=== PATIENT | male | born 1975 | race Caucasian/White ===

== ENCOUNTER 2016-08-20 09:02 | Emergency (ER) | payer BC ==
--- NOTE | 2016-08-20 09:14 | Emergency Department Record ---
History of Present Illness - General Chief complaint: Extremity Problem Stated complaint: RIGHT ELBOW INJURY Time Seen by Provider: 08/20/16 09:09 Source: Patient Mode of Arrival: Ambulatory Limitations: No limitations - History of Present Illness Initial comments: 40 yo male presents to ED with a CC of right elbow pain following a slip-and- fall while sledding yesterday. Patient reports painful ROM, denies numbness, tingling, or boot liner maker strength weakness symptoms. Patient denies other injury, and the patient denies health problems at his baseline. MD Complaint: Joint pain Onset/Timin -: Days(s) Location: Right, Elbow History of Same: No -: Yes Arthralgia Consistency: Constant Improves with: Nothing Worsens with: Other (flexion/movement) Associated Symptoms: Denies other symptoms - Related Data Home Medications Medication Instructions Recorded Confirmed Last Taken No Home Med [NO HOME MEDS] 08/20/16 08/20/16 Unknown Allergies Allergy/AdvReac Type Severity Reaction Status Date / Time No Known Drug Allergies Allergy Verified 08/20/16 09:10 Review of Systems Constitutional: Denies: Chills, Fever, Malaise, Night sweats Eyes: Denies: Eye discharge, Eye pain ENT: Denies: Congestion, Ear pain, Epistaxis Respiratory: Denies: Cough, Dyspnea Cardiovascular: Denies: Chest pain, Dyspnea on exertion Endocrine: Denies: Fatigue, Heat or cold intolerance Gastrointestinal: Denies: Abdominal pain, Nausea, Vomiting Genitourinary: Denies: Incontinence, Retention Musculoskeletal: Reports: Arthralgia. Denies: Back pain, Gout, Joint swelling Skin: Denies: Bruising, Change in color Neurological: Denies: Abnormal gait, Confusion, Headache, Seizure Psychiatric: Denies: Anxiety Hematological/Lymphatic: Denies: Anemia, Blood Clots Physical Exam - General General Appearance: Alert, Oriented x3, Cooperative, No acute distress Limitations: No limitations - Head Head exam: Atraumatic, Normocephalic, Normal inspection Head exam detail: negative: Abrasion, Contusion, Hsieh's sign, General tenderness, Hematoma, Laceration - Eye Eye exam: Normal appearance. negative: Conjunctival injection, Periorbital swelling, Periorbital tenderness, Scleral icterus - ENT Ear exam: negative: Auricular hematoma, Auricular trauma Nasal Exam: negative: Active bleeding, Discharge, Dried blood, Foreign body Mouth exam: negative: Drooling, Laceration, Muffled voice, Tongue elevation - Neck Neck exam: Normal inspection. negative: Meningismus, Tenderness - Respiratory Respiratory exam: Normal lung sounds bilaterally. negative: Respiratory distress, Rhonchi, Stridor, Wheezes - Cardiovascular Cardiovascular Exam: Regular rate, Normal rhythm, Normal heart sounds Peripheral Pulses: 3+: Radial (R) - GI/Abdominal GI/Abdominal exam: Soft. negative: Rebound, Rigid, Tenderness - Rectal Rectal exam: Deferred - exam: Deferred - Extremities Extremities exam: Full ROM, Tenderness, Other (mild TTP along the right elbow medially, FROM on examination, minimal STS present, strong distal radial pulse, and compartments of the forearm are soft on examination ). negative: Calf tenderness, Joint swelling, Pedal edema - Back Back exam: Reports: Normal inspection. Denies: CVA tenderness (R), CVA tenderness (L) - Neurological Neurological exam: Alert, Normal gait, Oriented X3 - Psychiatric Psychiatric exam: Normal affect, Normal mood. negative: Anxious - Skin Skin exam: Normal color. negative: Abrasion Type of lesion: negative: abrasion Course - Reevaluation(s) Reevaluation #1: 08/20/16 10:04 Right elbow: ? osteochondral injury of the capitellum, well ossicated fragment present. Patient was updated on his radiology results, will splint and have the patient follow-up with Dr. Velasco next week in the [facility] for further evaluation of his elbow injury. Patient reports that his pain symptoms are otherwise well controlled and appears stable for discharge at this time. Disposition Disposition: Discharge Clinical Impression: Fracture of Right Elbow Qualifiers: Encounter type: initial encounter Fracture type: closed Qualified Code(s): S42.401A - Unspecified fracture of lower end of right humerus, initial encounter for closed fracture Disposition: Home, Self-Care Condition: (2) Stable Instructions: Elbow Fracture in Adults (ED) Additional Instructions: Return to ED if your symptoms worsen or if you have any concerns. Ice/Ibuprofen as needed for pain symptoms. Follow-up with Dr. Velasco in the [facility] next week for further evaluation of your elbow injury. Referrals: EM VELASCO [DOCTOR OF OSTEOPATH] - [facility] [Provider Group] Forms: Patient Portal Access Time of Disposition: 10:08
--- NOTE | 2016-08-23 08:28 | RADIOLOGY REPORT ---
EXAM: RIGHT ELBOW, FOUR VIEWS HISTORY: PATIENT HAS A HISTORY OF FALL. ACUTE PAIN. TECHNIQUE: Four views of the right elbow were provided without comparison studies. FINDINGS: There is a well corticated osseous density identified at the posterior aspect of the olecranon. This finding appears to be an enthesophyte and/or accessory ossicle. On the olecranon view, there is a separate 4 mm osseous density identified adjacent to the capitellum. This finding may represent an unfused apophysis, however, osteochondral injury cannot be excluded. Mild soft tissue swelling is noted over the olecranon process. No significant antecubital or olecranon fat pad prominence is noted. IMPRESSION: 1. QUESTIONABLE UNFUSED APOPHYSIS VERSUS OSTEOCHONDRAL INJURY IN THE REGION OF THE CAPITELLUM. 2. WELL CORTICATED OSSEOUS DENSITY IDENTIFIED AT THE POSTERIOR ASPECT OF THE OLECRANON WHICH I SUSPECT LIKELY REPRESENTS AN ENTHESOPHYTE OR PARTIALLY FUSED OSSICLE. IF THERE IS FURTHER CLINICAL CONCERN THEN AN MRI OF THE RIGHT ELBOW CAN BE OBTAINED FOR FURTHER EVALUATION. JOB NUMBER: [id number] [facility]
== END 2016-08-20 10:24 | disposition home or self-care (01) ==
LOC: ER 09:02
DX: S42.101A Fracture of unspecified part of scapula, right shoulder, initial encounter for closed fracture (principal); W00.0XXA Fall on same level due to ice and snow, initial encounter; Y93.23 Activity, snow (alpine) (downhill) skiing, snowboarding, sledding, tobogganing and snow tubing
CPT/HCPCS: 99283